=== PATIENT | male | born 1985 | race Caucasian/White ===

== ENCOUNTER 2016-09-04 19:22 | Emergency (ER) | payer OTHER ==
[~2016-09-04] VITALS: Ht 175.2 cm; Wt 64.9 kg
[~2016-09-04 19:22] MED LIST: BACTRIM DS 8001 TA1 PO; CEPHALEXIN500 M1 PO; HYDROCODONE BIT1 T11 PO; KEFLEX500 MG PO; LEXAPRO5 M1 PO; LOTRIMIN 1%15 GM T; MOTRIN800 MG PO; PROAIR HFA8.5 GM INH
[2016-09-04] MEDS ORDERED: TOBREX OPHTH S2.5 ML OPH (20:17)
[2016-09-04] MEDS ORDERED: NAPROSYN500 MG PO (20:17)
[2016-09-23] MEDS ORDERED: AMOXICILLIN500 M2 PO (08:18)
== END 2016-09-04 20:22 | disposition home or self-care (01) ==
LOC: ED 19:22
DX: S05.01XA Injury of conjunctiva and corneal abrasion without foreign body, right eye, initial encounter (principal); R03.0 Elevated blood-pressure reading, without diagnosis of hypertension; F17.200 Nicotine dependence, unspecified, uncomplicated; Z98.890 Other specified postprocedural states; X58.XXXA Exposure to other specified factors, initial encounter; Y93.89 Activity, other specified; Y92.89 Other specified places as the place of occurrence of the external cause; Y99.9 Unspecified external cause status

== ENCOUNTER 2025-06-13 08:49 | Emergency (ER) | payer OTHER ==
[~2025-06-13] VITALS: Ht 175.2 cm; Wt 74.8 kg
[~2025-06-13 08:49] MED LIST changes: +AMOXICILLIN500 M2 PO; +NAPROSYN500 MG PO; +TOBREX OPHTH S2.5 ML OPH
[2025-06-13 09:33] LABS: BASO # 0.0 10*3/uL (0.0-0.1); BASO % 0.7 % (0.0-1.0); EOS # 0.1 10*3/uL (0.0-0.4); EOS % 2.0 % (1.0-4.0); MEAN CELL VOLUME 92.4 fl (80.0-94.0); MEAN CORPUSCULAR HGB 30.7 pg (27.0-31.0); MEAN PLATELET VOLUME 8.3 fl (9.6-12.3); MONO # 0.6 10*3/uL (0.1-1.0); MONO % 10.0 % (3.0-9.0); NEUT # 3.1 10*3/uL (2.3-7.9); NEUT % 55.2 % (47.0-73.0); NUCLEATED RED BLOOD CELL 0.0 % (0.0-0.0); NUCLEATED RED BLOOD CELL 0.0 10*3/uL (0.0-0.0); PLATELET COUNT AUTOMATED 221 10*3/uL (130-400); RED CELL DISTRI WIDTH 12.5 % (0-14.5)
[2025-06-13 09:54] LABS: BUN 12 mg/dl (9-23); SGPT/ALT 15 U/L (5-49)
[2025-06-13] MEDS ORDERED: METRONIDAZOLE500 M1 PO (10:22)
[2025-06-13] MEDS ORDERED: CIPRO500 MG PO (10:22)
[2025-06-13] MEDS ORDERED: REGLAN10 M1 PO (10:22)
[2025-06-13] MEDS ORDERED: Ondansetron4 MG PO (10:22)
== END 2025-06-13 10:09 | disposition home or self-care (01) ==
LOC: ED 08:49
PROVIDERS: Emergency Medicine
DX: K52.9 Noninfective gastroenteritis and colitis, unspecified (principal); Z98.890 Other specified postprocedural states